=== PATIENT | female | born 1980 | race Caucasian/White ===

== ENCOUNTER → 2016-10-20 | Outpatient (CLI) | payer BC ==
[2016-10-20 17:26] LABS: Glucose 85 mg/dL (74-99); Non-African American GFR(MDRD) >60 (>60 ml/min/1.73 sqM)
[2016-10-20 17:27] LABS: CH 32.5; CHCM 35.4; HCT 34.5 % (34.0-46.0); HDW 2.61; HGB 11.8 gm/dL (11.4-16.0); MCH 31.5 pg (25.0-35.0); MCHC 34.2 g/dL (31.0-37.0); MCV 92.1 fL (80.0-100.0); Mean Platelet Volume 7.3; RBC 3.74 m/uL (3.80-5.40); RDW 12.6 % (11.5-15.5); WBC 7.1 k/uL (3.8-10.6)
[2016-10-20 17:57] LABS: Hepatitis B Surface Ag Index 0.06
--- NOTE | 2016-10-20 21:24 | US ---
EXAMINATION TYPE: US OB <= 14 wk fetus DATE OF EXAM: 10/20/2016 4:33 PM COMPARISON: NONE CLINICAL HISTORY: Z36 Confirm Dates. HX of uterine fibroids; EXAM PERFORMED: Transabdominal (TA) EXAM MEASUREMENTS: GESTATIONAL AGE / DATING Physician Established: not established Dates by LMP: ( 8 weeks/4 days) EDC: 05/28/2017 Dates by First Scan: today Dates by Current Scan for: ( 8 weeks/5 days) EDC: 05/27/2017 MATERNAL ANATOMY Uterus: 10.1 x 8.5 x 7.1; hyperechoic focus ( fibroid) in upper right myometrium = 0.9 x 1.0 x 0.6cm Right Ovary: 2.3 x 1.7 x 1.8cm Left Ovary: 3.3 x 3.3 x 3.4cm Post CDS / Adnexa: wnl Presence of free fluid: no Presence of corpus luteal cyst: in left ovary = 2.1 x 2.3 x 2.4cm Presence of subchorionic bleed: inferior to gestational sac is anechoic area = 0.4 x 0.8 x 1.3cm. GESTATION / SURVEY CRL: 2.1cm (8 weeks/5 days) Yolk Sac (normal less than 6mm): 4.3mm Heart Rate: 173 bpm Rhythm: Normal IUP: Viable IUP Date of LMP: 08/21/2016 Beta HcG (if available): NA TECHNOLOGIST IMPRESSION: Single, live, IUP, 8 weeks/5 days, EDC: 05/27/2017, HR 173bpm; presence o f subchorionic bleed noted inferior to gestational sac; uterine fibroid in upper right myometrium. Single live intrauterine gestation is seen as gestational sac, yolk sac, and pole are identifie d. heart tones are regular and measure 173 bpm which is upper limits of normal. Note is made of small curvilinear fluid collection inferior to gestational sac felt to reflect small subchorionic he morrhage. A 1 cm hyperechoic focus in uterine myometrium may reflect calcified fibroid or dystrophic calcification. No free fluid is seen in pelvic cul-de-sac. Both ovaries are seen. Within left ovary there is 2.4 cm round anechoic lesion felt to reflect corpus luteal cyst. No suspicious extraovarian adnexal masses are identified. IMPRESSION: Single live intrauterine gestation is confirmed, mean crown-rump length is 2.1 cm corresponding to 8 weeks 5 day old fetus.
[2016-10-21 07:56] LABS: HIV-1/HIV-2 Ab Screen NONREAC (NON REAC)
== END | disposition home or self-care (01) ==
LOC: RADUSWWP 15:57
PROVIDERS: ATTEND Obstetrics & Gynecology
DX: Z36 Encounter for antenatal screening of mother (principal); O26.811 Pregnancy related exhaustion and fatigue, first trimester; Z3A.08 8 weeks gestation of pregnancy
CPT/HCPCS: 36415; 76801; 82565; 82947; 85027; 86762; 86780; 86850; 86900; 86901; 87340; 87389

== ENCOUNTER → 2017-02-19 | Outpatient (CLI) | payer BC ==
[2017-02-19 09:14] LABS: CH 33.8; CHCM 34.5; HCT 34.9 % (34.0-46.0); HDW 2.78; HGB 11.5 gm/dL (11.4-16.0); MCH 32.6 pg (25.0-35.0); MCHC 33.1 g/dL (31.0-37.0); MCV 98.5 fL (80.0-100.0); Mean Platelet Volume 7.7; RBC 3.54 m/uL (3.80-5.40); WBC 9.5 k/uL (3.8-10.6)
== END | disposition home or self-care (01) ==
LOC: LABWHC1 07:42
PROVIDERS: ATTEND Obstetrics & Gynecology
DX: Z34.82 Encounter for supervision of other normal pregnancy, second trimester (principal)
CPT/HCPCS: 36415; 82950; 85027

== ENCOUNTER 2017-02-23 08:48 | Outpatient (CLI) | payer BC ==
[2017-02-23 09:57] VITALS: BP 124/88; PULSE 76; RESP 18; TEMP 96.1
[2017-02-23 10:12] LABS: Appearance,Urine Clear (Clear); Bacteria,Urine Occasional /hpf; Bilirubin,Urine Negative (Negative); Glucose,Urine (UA) Negative (Negative); Ketones,Urine Negative (Negative); Leukocyte Esterase,Urine Trace (Negative); Mucus,Urine Rare /hpf; Nitrite,Urine Negative (Negative); PH, Urine 5.5 (5.0-8.0); Particle Count 1652; Protein,Urine Negative (Negative); Specific Gravity,Urine 1.004 (1.001-1.035); Squamous Epithelial Cell,Urine 4 /hpf (0-4); UA Billing (MACRO vs. MICRO) MICRO; Urobilinogen,Urine <2.0 mg/dL (<2.0); WBC,Urine 1 /hpf (0-5)
== END 2017-02-23 10:50 | disposition home or self-care (01) ==
LOC: FBPOP 08:48
PROVIDERS: ATTEND Obstetrics & Gynecology
DX: O47.02 False labor before 37 completed weeks of gestation, second trimester (principal); Z3A.26 26 weeks gestation of pregnancy
CPT/HCPCS: 81001; 82731; 99213

== ENCOUNTER 2017-04-16 13:56 | Outpatient (CLI) | payer BC ==
[2017-04-16 14:54] VITALS: BP 116/56; PULSE 73; RESP 14; TEMP 97.5
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
== END 2017-04-16 15:10 | disposition home or self-care (01) ==
LOC: FBPOP 13:56
PROVIDERS: ATTEND Obstetrics & Gynecology
DX: O26.93 Pregnancy related conditions, unspecified, third trimester (principal); Z3A.34 34 weeks gestation of pregnancy
CPT/HCPCS: 59025; 99213

== ENCOUNTER 2017-05-19 18:49 | Inpatient (IN) | payer BC ==
[~2017-05-19 18:49] MED LIST: BUPIVACAINE (PF) 0.25% 30 ML VIAL ONE; SODIUM CHLORIDE 0.9% 100 ML BAG ONE; fentaNYL (PF) 50 MCG/ML 5 ML AMP ONE
[2017-05-19] MEDS ORDERED: OXYTOCIN 20 UNITS/1000 ML NS 1,000 ML IV SCH (19:13)
[2017-05-19] MEDS ORDERED: AMPICILLIN 2,000 MG in SODIUM CHLORIDE 0.9% 100 ML IVPB STA (19:28)
[2017-05-19] MEDS ORDERED: TERBUTALINE 1 MG/ML VIAL SQ PRN (19:28)
[2017-05-19] MEDS ORDERED: CARBOPROST TROMETHAMINE 250 MCG/ML 1 ML AMP IM PRN (19:28)
[2017-05-19] MEDS ORDERED: LIDOCAINE 1% (PF) 10 MG/ML (30 ML SDV) SQ PRN (19:28)
[2017-05-19] MEDS ORDERED: OXYTOCIN 10 UNIT/ML 1 ML VIAL IM PRN (19:28)
[2017-05-19] MEDS ORDERED: METHYLERGONOVINE 0.2 MG/ML 1 ML AMP IM PRN (19:28)
[2017-05-19] MEDS: LACTATED RINGERS 1,000 ML IV SCH (19:55)
[2017-05-19 20:23] LABS: Basophils % (A) 0 %; CH 34.2; CHCM 36.4; Eosinophils # (A) 0.1 k/uL (0-0.7); Eosinophils % (A) 1 %; HCT 32.4 % (34.0-46.0); HGB 11.7 gm/dL (11.4-16.0); Luc # (Auto) 0.29; Luc % (Auto) 3; Lymphocytes # (A) 1.7 k/uL (1.0-4.8); Lymphocytes % (A) 14 %; MCH 34.2 pg (25.0-35.0); MCHC 36.2 g/dL (31.0-37.0); MCV 94.5 fL (80.0-100.0); Mean Platelet Volume 8.1; Monocytes # (A) 0.6 k/uL (0-1.0); Monocytes % (A) 6 %; Neutrophils % (A) 77 %; RBC 3.42 m/uL (3.80-5.40); RDW 14.3 % (11.5-15.5); WBC 11.6 k/uL (3.8-10.6); WBC (Perox) 11.69
[2017-05-19 20:32] VITALS: BMI 29.4
[2017-05-20] MEDS: LACTATED RINGERS 1,000 ML IV SCH ×2 (00:44→05:33)
[2017-05-20] MEDS: AMPICILLIN 1,000 MG in SODIUM CHLORIDE 0.9% 50 ML IVPB SCH (01:10)
[2017-05-20] MEDS ORDERED: BUPIVACAINE (PF) 0.25% 25 ML, fentaNYL (PF) 200 MCG in SODIUM CHLORIDE 0.9% 71 ML EPIDURAL ONE (06:43)
--- NOTE | 2017-05-20 06:59 | P.HPOB ---
History of Present Illness H&P Date: 05/20/17 Chief Complaint: Leaking fluid. This patient is a pleasant 36-year-old 2 para 1 female estimated date of confinement 05/28/2017 estimated gestational age 38-6/7 weeks gestation who was admitted by Dr. Lorenz last evening with ruptured membranes. Patient states that her water broke and then she had some onset of contractions thereafter. care is complicated by her age which she declined genetic testing. She has had growth ultrasounds and nonstress tests that were normal. A she also has a history of a positive group B strep with her first however was negative this . Review of Systems Constitutional: Denies chills, Denies fever Cardiovascular: Denies chest pain, Denies shortness of breath Respiratory: Denies cough Gastrointestinal: Reports heartburn Genitourinary: Reports Menstruation: Reports amenorrhea Neurological: Denies numbness, Denies weakness Past Medical History Past Medical History: No Reported History Additional Past Medical History / Comment(s): Patient has a history of a uterine fibroid. History of Any Multi-Drug Resistant Organisms: None Reported Additional Past Surgical History / Comment(s): Patient had a cone biopsy in 2009. Past Anesthesia/Blood Transfusion Reactions: No Reported Reaction Past Psychological History: No Psychological Hx Reported Smoking Status: Never smoker Past Alcohol Use History: None Reported Past Drug Use History: None Reported - Past Family History Father History Unknown: Yes Family Medical History: Diabetes Mellitus Medications and Allergies Home Medications Medication Instructions Recorded Confirmed Type Pnv,Calcium 72/Iron/Folic Acid 1 tab PO DAILY 02/23/17 04/16/17 History [ Plus Tablet] Allergies Allergy/AdvReac Type Severity Reaction Status Date / Time No Known Allergies Allergy Verified 05/19/17 19:00 Exam - Vital Signs Vital signs: Vital Signs Temp Pulse Resp BP 05/19/17 19:28 98.1 F 77 18 118/58 05/19/17 19:13 98 F 77 18 136/65 Intake and Output 05/19/17 05/19/17 05/20/17 14:59 22:59 06:59 Intake Total 1999 Balance 1999 Intake: IV 2000 Lactated Ringers 1,000 ml 2000 @ 125 mls/hr IV .Q8H SAVITA Rx#:[id number] Other: # Voids 1 1 Weight 73.028 kg Patient Weight 05/20/17 06:59 Weight 73.028 kg - OBG Physical Exam Abdomen: bowel sounds normal, no diffuse tenderness, no bruit present, no guarding noted, no hepatomegaly, no splenomegaly, no mass Vulva: both: normal Cervix: no lesion (Patient is completely dilated and +1 station.), no discharge Uterus: enlarged (Fundal height is consistent with a term .) Results blood work shows she is O positive, rubella immune, RPR nonreactive, HIV nonreactive, hepatitis B negative, Glucola was normal, group B strep was negative, ultrasounds have been normal. Result Diagrams: 05/19/17 19:55 Abnormal Lab Results - Last 24 Hours (Table) 05/19/17 Range/Units 19:55 WBC 11.6 H (3.8-10.6) k/uL RBC 3.42 L (3.80-5.40) m/uL Hct 32.4 L (34.0-46.0) % Plt Count 136 L (150-450) k/uL Neutrophils # 9.0 H (1.3-7.7) k/uL Assessment and Plan (1) Normal labor and delivery Narrative/Plan: This is a pleasant 36-year-old 2 para 1 female 38-6/7 weeks gestation with spontaneous rupture membranes and onset of labor. Patient does have a history in the past of a positive strep and therefore we'll prophylactically placed on antibiotics. Anticipate vaginal delivery. Status: Acute (2) SROM (spontaneous rupture of membranes) Status: Acute (3) Elderly multigravida Status: Acute
[2017-05-20] MEDS ORDERED: LANOLIN CREAM 5 GM TUBE TOPICAL PRN (07:00)
[2017-05-20] MEDS ORDERED: BENZOCAINE/MENTHOL SPRAY 1 GM/SPRAY AEROSOL TOPICAL PRN (07:00)
[2017-05-20] MEDS ORDERED: ZOLPIDEM 5 MG TAB PO PRN (07:00)
[2017-05-20] MEDS ORDERED: BISACODYL 10 MG SUPP RECTAL PRN (07:00)
[2017-05-20] MEDS ORDERED: IBUPROFEN 600 MG TAB PO PRN (07:00)
[2017-05-20] MEDS ORDERED: Acetaminophen-Codeine 300-30mg TAB PO PRN ×2 (07:00)
[2017-05-20] MEDS ORDERED: diphenhydrAMINE 25 MG CAP PO PRN (07:00)
[2017-05-20] MEDS ORDERED: ACETAMINOPHEN TAB 325 MG TAB PO PRN (07:00)
[2017-05-20] MEDS ORDERED: HYDROCORTISONE 2.5% RECTAL CREAM 30 GM TUBE RECTAL PRN (07:00)
[2017-05-20] MEDS ORDERED: WITCH HAZEL 1 EACH MED..PAD TOPICAL PRN (07:00)
[2017-05-20] MEDS ORDERED: diphenhydrAMINE 50 MG/ML 1 ML VIAL IVP PRN (07:00)
[2017-05-20] MEDS ORDERED: SIMETHICONE 80 MG CHEWABLE PO PRN (07:00)
--- NOTE | 2017-05-20 07:03 | P.PROBDLV ---
Vaginal Delivery Note - . Vaginal Delivery Note: Normal vaginal delivery viable female Apgars 9 and 9 delivery time is 0637 hours. Please see dictated H&P for intimate details of this patient's admission. In brief summary this is a pleasant 36-year-old 2 para 1 female 38-6/7 weeks gestation who is admitted to labor and delivery with spontaneous rupture membranes. Patient is given antibiotics due to a history of positive strep in the past and does require augmentation of labor. Patient gets an epidural and she is about 6 cm dilated and quickly goes to complete. Patient pushes the head to the perineum and the posterior perineum is supported. We have controlled delivery of the infant's head over the perineum. Mouth and nares are bulb suctioned and there is a very loose nuchal cord. This is reduced. We then have delivery of the anterior posterior shoulder and rest this 's body. This is a vigorous viable female infant Apgars are 9 and 9 delivery time is 0637 hours. After delivery of the infant the umbilical cord is doubly clamped and cut. It appears to be trivascular. The placenta is then spontaneously delivered intact. Estimated blood loss is 150 mL. There is a second-degree midline laceration that is repaired with 3-0 Vicryl in the usual fashion in good reapproximation is noted. There are no complications. Infant and mother are stable delivery room.
[2017-05-20] MEDS: SENNOSIDES-DOCUSATE SODIUM 1 EACH TAB PO SCH ×2 (11:14→20:07)
[2017-05-20] MEDS ORDERED: DIPH,PERTUS(ACELL)TETVAC-LF 0.5 ML VIAL IM ONE (14:32)
--- NOTE | 2017-05-21 06:02 | P.PNOBGVD ---
Subjective - Subjective Patient reports: Reports appetite normal, Reports voiding normally, Reports pain well controlled, Reports ambulating normally : doing well Objective - Latest Vital Signs Latest vital signs: Vital Signs Temp Pulse Resp BP 05/21/17 00:00 98.4 F 69 16 123/74 05/20/17 16:00 98.4 F 73 16 119/64 05/20/17 12:00 98.5 F 68 16 116/54 05/20/17 08:55 98 F 71 16 121/60 05/20/17 08:25 97.8 F 62 16 118/61 05/20/17 08:00 97.7 F 64 16 112/59 05/20/17 07:54 59 L 18 119/61 05/20/17 07:40 67 16 129/63 05/20/17 07:25 67 16 114/53 05/20/17 07:07 70 16 120/57 05/20/17 06:50 98 F 63 18 117/57 Intake and Output 05/20/17 05/20/17 05/21/17 14:59 22:59 06:59 Intake Total 100 300 Balance 100 300 Intake: Oral 100 300 Other: # Voids 1 2 - Exam Lungs: bilateral: normal Chest: Normal S1, Normal S2 Extremities: Present: normal Abdomen: Present: normal appearance, soft Uterus: Present: normal, firm Assessment and Plan (1) Normal labor and delivery Narrative/Plan: day 1. Patient is resting without complaints. Vital signs are stable and she is febrile. Uterus is firm nontender she's having normal lochia. My impression this is a normal course. Plan is to continue routine care discharge home tomorrow. Current Visit: Yes Status: Acute Code(s): O80 - ENCOUNTER FOR FULL-TERM UNCOMPLICATED DELIVERY SNOMED Code(s): 79547792 (2) SROM (spontaneous rupture of membranes) Current Visit: Yes Status: Acute Code(s): KOV7801 - SNOMED Code(s): 844310952 (3) Elderly multigravida Current Visit: Yes Status: Acute Code(s): O09.529 - SUPERVISION OF ELDERLY MULTIGRAVIDA, UNSPECIFIED TRIMESTER SNOMED Code(s): 640660574
[2017-05-21] MEDS: AMPICILLIN 1,000 MG in SODIUM CHLORIDE 0.9% 50 ML IVPB SCH (08:19)
[2017-05-21] MEDS: SENNOSIDES-DOCUSATE SODIUM 1 EACH TAB PO SCH ×2 (10:39→19:52)
--- NOTE | 2017-05-22 05:49 | P.PNOBGVD ---
Subjective - Subjective Patient reports: Reports appetite normal, Reports voiding normally, Reports pain well controlled, Reports ambulating normally : doing well Objective - Latest Vital Signs Latest vital signs: Vital Signs Temp Pulse Resp BP Pulse Ox 05/22/17 00:00 98.1 F 65 18 121/70 99 05/21/17 19:50 98.7 F 65 17 132/77 97 05/21/17 16:00 98.7 F 73 16 122/71 05/21/17 07:55 97.4 F L 71 16 116/64 - Exam Lungs: bilateral: normal Chest: Normal S1, Normal S2 Extremities: Present: normal Abdomen: Present: normal appearance, soft Uterus: Present: normal, firm Assessment and Plan (1) Normal labor and delivery Narrative/Plan: Post day #2. Patient is resting without complaints. Vital signs are stable she is afebrile. Uterus is firm nontender she's having normal lochia. Impression is a normal course. Plan is to continue routine care discharge home later today. Current Visit: Yes Status: Acute Code(s): O80 - ENCOUNTER FOR FULL-TERM UNCOMPLICATED DELIVERY SNOMED Code(s): 88365094 (2) SROM (spontaneous rupture of membranes) Current Visit: Yes Status: Acute Code(s): FYM9304 - SNOMED Code(s): 578117934 (3) Elderly multigravida Current Visit: Yes Status: Acute Code(s): O09.529 - SUPERVISION OF ELDERLY MULTIGRAVIDA, UNSPECIFIED TRIMESTER SNOMED Code(s): 607250375
--- NOTE | 2017-05-22 05:51 | P.DS ---
Providers Date of admission: 05/19/17 19:12 Expected date of discharge: 05/22/17 Attending physician: Nicolás Gan Primary care physician: Stated None - Discharge Diagnosis(es) (1) Normal labor and delivery Current Visit: Yes Status: Acute (2) SROM (spontaneous rupture of membranes) Current Visit: Yes Status: Acute (3) Elderly multigravida Current Visit: Yes Status: Acute Hospital Course: Please see dictated H&P for intimate details of this patient's admission. Brief summary is a pleasant 36-year-old 2 para 1 female 38-5/7 weeks gestation admitted to labor and delivery with spontaneous rupture membranes in active labor. Patient was on have a vaginal delivery viable female . Please see dictated delivery note. day #2 patient's felt be stable for discharge home follow up with me in 6 weeks. Procedures: Normal vaginal delivery. Patient Condition at Discharge: Good Plan - Discharge Summary New Discharge Prescriptions: New Acetaminophen-Codeine 300-30mg [Tylenol w/codeine #3] 1 - 2 each PO Q4HR PRN #30 tab PRN Reason: Mild Pain exceeding Tylenol Ibuprofen [Motrin] 600 mg PO Q6HR PRN #40 tab PRN Reason: Mild Pain Or Fever >= 100.5 No Action Pnv,Calcium 72/Iron/Folic Acid [ Plus Tablet] 1 tab PO DAILY Discharge Medication List Pnv,Calcium 72/Iron/Folic Acid [ Plus Tablet] 1 tab PO DAILY 02/23/17 [ History] Acetaminophen-Codeine 300-30mg [Tylenol w/codeine #3] 1 - 2 each PO Q4HR PRN # 30 tab 05/21/17 [Rx] Ibuprofen [Motrin] 600 mg PO Q6HR PRN #40 tab 05/21/17 [Rx] Follow up Appointment(s)/Referral(s): Nicolás Gan MD [STAFF PHYSICIAN] - 06/30/17 9:45 am Patient Instructions/Handouts: Vaginal Delivery (DC) Activity/Diet/Wound Care/Special Instructions: No intercourse or anything per vagina for 6 weeks. Please call if any fever, chills, excessive vaginal bleeding, and/or abdominal pain. Discharge Disposition: HOME SELF-CARE
[2017-05-22 08:57] VITALS: BP 130/68; PULSE 91; RESP 15; TEMP 98
[2017-05-22] MEDS: SENNOSIDES-DOCUSATE SODIUM 1 EACH TAB PO SCH (11:02)
== END 2017-05-22 10:50 | disposition home or self-care (01) | DRG 775 ==
LOC: FBPOP 18:49 → 4FBP 19:12
PROVIDERS: ADMIT Obstetrics & Gynecology; ATTEND Obstetrics & Gynecology
PROC: 3E0S3NZ Introduction of Analgesics, Hypnotics, Sedatives into Epidural Space, Percutaneous Approach (ICD-10-PCS; 2017-05-19)
PROC: 10E0XZZ Delivery of Products of Conception, External Approach (ICD-10-PCS; principal; 2017-05-20)
PROC: 0KQM0ZZ Repair Perineum Muscle, Open Approach (ICD-10-PCS; 2017-05-20)
PROC: 3E0234Z Introduction of Serum, Toxoid and Vaccine into Muscle, Percutaneous Approach (ICD-10-PCS; 2017-05-20)
DX: O70.1 Second degree perineal laceration during delivery (principal); Z37.0 Single live birth; O69.81X0 Labor and delivery complicated by cord around neck, without compression, not applicable or unspecified; Z83.3 Family history of diabetes mellitus; Z3A.38 38 weeks gestation of pregnancy; Z23 Encounter for immunization; Z86.19 Personal history of other infectious and parasitic diseases; Z87.42 Personal history of other diseases of the female genital tract; Z87.19 Personal history of other diseases of the digestive system
CPT/HCPCS: 59025; 84112; 85025; 88307; 90471; 90715; 99213

== ENCOUNTER → 2017-12-03 | Outpatient (CLI) | payer BC ==
--- NOTE | 2017-12-03 07:31 | US ---
EXAMINATION TYPE: US abdomen limited DATE OF EXAM: 12/03/2017 COMPARISON: NONE CLINICAL HISTORY: R10.11 right upper quandrant pain. Pt states ABD pain, recently post prandial EXAM MEASUREMENTS: Liver Length: 16.1 cm Gallbladder Wall: 0.6 cm CBD: 0.5 cm Right Kidney: 11.3 x 4.0 x 4.8 cm Pancreas: wnl Liver: wnl Gallbladder: Multiple gallstones with one in neck, thickened wall Evidence for sonographic Yin's sign: No CBD: wnl Right Kidney: wnl IMPRESSION: 1. Cholelithiasis with a gallstone identified within the gallbladder neck. Gallbladder wall is thicke joseph. No pericholecystic fluid. Correlate clinically for cholecystitis. A Yellow level critical message alert has been initiated for Harvinder Casillas MD via the [employer] Critical Results System on 12/03/2017 7:29 AM. This message alert has been sent to Harvinder Casillas MD via the preferences provided by the clinician for the receipt of Radiology Critical Findings. Message ID [id number].
== END | disposition home or self-care (01) ==
LOC: RADUSWWP 06:51
PROVIDERS: ATTEND Internal Medicine
DX: K80.20 Calculus of gallbladder without cholecystitis without obstruction (principal)
CPT/HCPCS: 76705

== ENCOUNTER 2017-12-07 07:39 | Day surgery (SDC) | payer BC ==
[2017-12-06 13:22] VITALS: BMI 21.4
[~2017-12-07 07:39] MED LIST changes: -BUPIVACAINE (PF) 0.25% 30 ML VIAL ONE; +DEXAMETHASONE SOD PHOSPHATE 10 MG/ML 1 ML VIAL IV ONE; +MIDAZOLAM 2 MG/2 ML VIAL IV PRN; +ONDANSETRON 4 MG/2 ML VIAL IVP ONE; +SCOPOLAMINE 1.5MG/72HR PATCH TRANSDERM ONE; -SODIUM CHLORIDE 0.9% 100 ML BAG ONE; +ceFAZolin IN SWFI 2 GM/20 ML SYRINGE IVP ONE; -fentaNYL (PF) 50 MCG/ML 5 ML AMP ONE
[2017-12-07] MEDS ORDERED: LIDOCAINE 1% 20 ML VIAL (10MG/ML) FOR IV START INTRADERMA ONE (09:00)
[2017-12-07] MEDS: LACTATED RINGERS 1,000 ML IV SCH ×2 (09:01→13:56)
[2017-12-07] MEDS ORDERED: HEPARIN SODIUM,PORCINE 5,000 UNIT/ML 1 ML VIAL SQ ONE (09:13)
[2017-12-07] MEDS ORDERED: PROPOFOL 10 MG/ML 20 ML VIAL IV ONE (09:41)
[2017-12-07] MEDS ORDERED: MIDAZOLAM 2 MG/2 ML VIAL ONE (09:41)
[2017-12-07] MEDS ORDERED: SUCCINYLCHOLINE CHLORIDE 100 MG/5 ML SYR IV ONE (09:41)
[2017-12-07] MEDS ORDERED: LIDOCAINE 1% INJ 10MG/ML (20 ML MDV) ONE (09:41)
[2017-12-07] MEDS ORDERED: GLYCOPYRROLATE 0.2 MG/ML 2 ML VIAL ONE (09:41)
[2017-12-07] MEDS ORDERED: NEOSTIGMINE 1 MG/ML 10 ML VIAL ONE (09:41)
[2017-12-07] MEDS ORDERED: ROCURONIUM BROMIDE 10 MG/ML 10 ML VIAL IV ONE (09:41)
[2017-12-07] MEDS ORDERED: fentaNYL (PF) 50 MCG/ML 2 ML AMP ONE (09:41)
[2017-12-07] MEDS ORDERED: BUPIVACAINE (PF) 0.25% 30 ML VIAL SQ ONE ×2 (10:03)
[2017-12-07] MEDS ORDERED: LIDOCAINE 1%-EPI 1:100,000 20 ML VIAL SQ ONE ×2 (10:03)
[2017-12-07] MEDS ORDERED: LACTATED RINGERS 1,000 ML IV ONE (10:26)
[2017-12-07 11:08] VITALS: TEMP 97.4
[2017-12-07] MEDS: fentaNYL (PF) 50 MCG/ML 2 ML AMP IV PRN ×2 (11:20→11:32)
[2017-12-07 11:49] VITALS: RESP 18
--- NOTE | 2017-12-07 12:14 | P.OP ---
Date of Procedure: 12/07/17 Preoperative Diagnosis: Acute on chronic cholecystitis Postoperative Diagnosis: Same Procedure(s) Performed: Laparoscopic cholecystectomy Anesthesia: GETA Condition: stable Disposition: PACU Indications for Procedure: This 37-year-old female who began experiencing right upper quadrant pain and tenderness 1 week ago. She had ultrasound findings consistent with acute on chronic cholecystitis. This pain progressively got worse. I described to her the risks benefits and alternatives to laparoscopic cholecystectomy. These include risks of bleeding infection damage surrounding tissue need for further operation and damage to common bile duct. She stated she understood agreed and consented Description of Procedure: Patient was brought into the operative suite remain in the supine position underwent general endotracheal anesthesia per Department of anesthesia she was prepped and draped in the usual sterile fashion timeout was performed correct patient correct procedure correct site was verified. A 2 cm incision was made within the umbilicus carried down to the fashion under direct visualization the fascia was incised and the abdomen was entered directly. A 12 mm port was placed under direct visualization the abdomen was insufflated. 3 5 mm ports were placed in the right upper quadrant. The gallbladder is identified grasped at the fundus and retracted. The cystic duct and cystic artery were skeletonized the critical view was obtained they were then duly clipped and ligated. The gallbladder is removed from the liver bed using Bovie left cautery. The gallbladder was placed in Endo Catch bag and removed through the infraumbilical port site. Hemostasis was noted. The infraumbilical port site was closed with 0 Vicryl in a [id number] fashion with 8 of a Sai- Saniya suture passer. 4-0 Vicryl subcuticular sutures were used to close the skin followed by skin glue patient tolerated procedure well no apparent complications Plan - Discharge Summary New Discharge Prescriptions: New Docusate [Colace] 100 mg PO BID #14 capsule HYDROcodone/APAP 5-325MG [Eugene 5-325] 1 tab PO Q4HR PRN #30 tab PRN Reason: Pain No Action Multivitamin [Multivitamins Adult Gummies] 1 each PO HS Discharge Medication List Multivitamin [Multivitamins Adult Gummies] 1 each PO HS 12/06/17 [History] Docusate [Colace] 100 mg PO BID #14 capsule 12/07/17 [Rx] HYDROcodone/APAP 5-325MG [Eugene 5-325] 1 tab PO Q4HR PRN #30 tab 12/07/17 [Rx] Follow up Appointment(s)/Referral(s): Chilango Baumann DO [Doctor of Osteopathic Medicine] - 12/22/17 9:30 am (1 to 2 weeks) Patient Instructions/Handouts: *[facility] - Laparoscopic Cholecystectomy Discharge Instructions, *[facility] - (Anesthesia) Discharge Instructions Outpatient Surgery Activity/Diet/Wound Care/Special Instructions: As tolerated, do not lift over 15lbs for 3-4 weeks. May shower tomorrow and pat dry. Do not submerge in water Discharge Disposition: HOME SELF-CARE
[2017-12-07] MEDS ORDERED: HYDROcodone/APAP 5-325MG 1 EACH TAB PO ONE ×2 (12:32→13:13)
[2017-12-07 14:18] VITALS: BP 115/68; PULSE 65
== END 2017-12-07 15:15 | disposition home or self-care (01) ==
LOC: OR 07:39
PROVIDERS: ATTEND Student in an Organized Health Care Education/Training Program
DX: K80.12 Calculus of gallbladder with acute and chronic cholecystitis without obstruction (principal)
CPT/HCPCS: 81025; 88304; 47562; J2250; J1644; J1100; J2710; J2405; J2001; J3010; J0330; J2704; J0690

== ENCOUNTER → 2017-12-31 | Outpatient (CLI) | payer BC ==
--- NOTE | 2017-12-31 11:17 | MM ---
Reason for exam: screening (asymptomatic). Baseline mammogram. History: Patient had first child at age 31. Physical Findings: Nurse did not find any significant physical abnormalities on exam. MG 3D Screening Mammo W/Cad Bilateral CC and MLO view(s) were taken. The breast tissue is heterogeneously dense. This may lower the sensitivity of mammography. Finding: There are typically benign round, diffuse/scattered and grouped calcifications in both breasts, greater in the left breast. There is no discrete abnormality. These results were verbally communicated with the patient and result sheet given to the patient on 12/31/17. ASSESSMENT: Benign, BI-RAD 2 RECOMMENDATION: Routine screening mammogram of both breasts at age 40.
== END | disposition home or self-care (01) ==
LOC: RADMAMWWP 09:31
PROVIDERS: ATTEND Obstetrics & Gynecology
DX: Z12.31 Encounter for screening mammogram for malignant neoplasm of breast (principal)
CPT/HCPCS: 77063; 77067

== ENCOUNTER 2019-10-17 09:13 | Day surgery (SDC) | payer BC ==
[~2019-10-17 09:13] MED LIST changes: -DEXAMETHASONE SOD PHOSPHATE 10 MG/ML 1 ML VIAL IV ONE; +LACTATED RINGERS 1,000 ML IV SCH; +LIDOCAINE 1% 20 ML VIAL (10MG/ML) FOR IV START INTRADERMA PRN; -MIDAZOLAM 2 MG/2 ML VIAL IV PRN; -ONDANSETRON 4 MG/2 ML VIAL IVP ONE; -SCOPOLAMINE 1.5MG/72HR PATCH TRANSDERM ONE; -ceFAZolin IN SWFI 2 GM/20 ML SYRINGE IVP ONE
[2019-10-17 09:30] VITALS: TEMP 97.2
[2019-10-17] MEDS ORDERED: LIDOCAINE 1% INJ 10MG/ML (20 ML MDV) ONE (10:39)
[2019-10-17] MEDS ORDERED: PROPOFOL 10 MG/ML 20 ML VIAL IV ONE (10:39)
--- NOTE | 2019-10-17 11:18 | P.PCN ---
Date of Procedure: 10/17/19 Description of Procedure: BRIEF HISTORY: Patient is a 39-year-old female who presents for outpatient colonoscopy for evaluation of diarrhea. She reports intermittent episodes of loose stool. Previously the patient underwent colonoscopy 20 years ago which she believes was normal. No family history of colon cancer reported. PROCEDURE PERFORMED: Colonoscopy with polypectomy and biopsy. PREOPERATIVE DIAGNOSIS: Diarrhea, last colonoscopy 20 years ago. ESTIMATED BLOOD LOSS: Minimal. IV sedation per Anesthesia. PROCEDURE: After informed consent was obtained, the patient, was brought into the endoscopy unit. IV sedation was administered by Anesthesia under continuous monitoring. Digital rectal examination was normal. Initially the Olympus CF-190 flexible video colonoscope was then inserted in the rectum, gradually advanced into the cecum without any difficulty. Careful examination was performed as the scope was gradually being withdrawn. Ileocecal valve and the appendiceal orifice were visualized and appeared normal. Prep was excellent. Mucosa of the cecum, as cending colon, transverse colon, descending colon, sigmoid colon, and rectum appeared normal, with random biopsies taken of the right and left colon in the setting of diarrhea. Flat 5 mm ascending colon polyp removed with cold snare polypectomy . Retroflexion was performed in the rectum and no lesions were seen, with low-grade internal hemorrhoids and skin tags noted. The patient tolerated the procedure well. IMPRESSION: Normal-appearing colon from rectum to cecum, with random biopsies taken of the right and left colon in the setting of altered bowel function and diarrhea. Small ascending colon polyp removed with cold snare polypectomy. RECOMMENDATIONS: Findings of this examination were discussed with the patient and her . Okay to resume diet. Okay to resume medications. Await pathology from biopsies and polypectomy. Would recommend repeat colonoscopy in 5 years if polypectomy is consistent with tubular adenoma or tubulovillous adenoma otherwise patient can undergo screening at 50.
[2019-10-17 11:32] VITALS: BP 104/54; PULSE 63; RESP 16
== END 2019-10-17 11:47 | disposition home or self-care (01) ==
LOC: ORWHC2ENDO 09:13
PROVIDERS: ATTEND Internal Medicine
DX: D12.2 Benign neoplasm of ascending colon (principal); K64.8 Other hemorrhoids; K64.4 Residual hemorrhoidal skin tags; Z79.1 Long term (current) use of non-steroidal anti-inflammatories (NSAID); Z98.890 Other specified postprocedural states; Z90.49 Acquired absence of other specified parts of digestive tract
CPT/HCPCS: 81025; 88305; 45385; J2001; J2704

== ENCOUNTER → 2021-10-28 | Outpatient (CLI) | payer BC ==
--- NOTE | 2021-10-30 10:58 | MM ---
Reason for exam: screening (asymptomatic). Last mammogram was performed 3 years and 10 months ago. History: Patient had first child at age 31. Physical Findings: A clinical breast exam by your physician is recommended on an annual basis and results should be correlated with mammographic findings. MG 3D Screening Mammo W/Cad Bilateral CC and MLO view(s) were taken. Prior study comparison: December 31, 2017, bilateral MG 3d screening mammo w/cad. The breast tissue is extremely dense which could obscure a lesion on mammography. No significant changes when compared with prior studies. ASSESSMENT: Benign, BI-RAD 2 RECOMMENDATION: Routine screening mammogram of both breasts in 1 year.
== END | disposition home or self-care (01) ==
LOC: RADMAMWWP 12:47
PROVIDERS: ATTEND Obstetrics & Gynecology
DX: Z12.31 Encounter for screening mammogram for malignant neoplasm of breast (principal)
CPT/HCPCS: 77063; 77067

== ENCOUNTER → 2023-11-15 | Outpatient (CLI) | payer BC ==
--- NOTE | 2023-11-16 15:06 | MM ---
Reason for Exam: Screening (asymptomatic). Last screening mammogram was performed 12 month(s) ago. Patient History: Menarche at age 12. First Full-Term at age 31. Late child-bearing (after 30). Premenopausal. Patient has history of breast feeding. Last menstrual period: 10/31/2023 Risk Values: Alejandrina 5 year model risk: 1.0%. NCI Lifetime model risk: 13.2%. Prior Study Comparison: 12/31/2017 Bilateral Screening Mammogram, [facility]. 10/28/2021 Bilateral Screening Mammogram, [facility]. 11/11/2022 Bilateral MG 3D screening mammo w/cad, [facility]. Tissue Density: The breasts are extremely dense, which lowers the sensitivity of mammography. Findings: Analyzed By CAD. There is no suspicious group of microcalcifications or new suspicious mass. Overall Assessment: Negative, BI-RAD 1 Management: Screening Mammogram of both breasts in [address] [facility] will attempt to contact patient to return for supplemental views and ultrasound if indicated. Patient should continue monthly self-breast exams. A clinical breast exam by your physician is recommended on an annual basis. This exam should not preclude additional follow-up of suspicious palpable abnormalities. Note on Alejandrina scores and lifetime risk: 1. A Alejandrina score greater than 3% is considered moderate risk. If this is the case, consider specialist referral to assess eligibility for a risk reducing agent. 2. If overall lifetime risk for the development of breast cancer is 20% or higher, the patient may qualify for future screening with alternating mammogram and breast MRI. Electronically signed and approved by: Jesus Hitchcock DO
== END | disposition home or self-care (01) ==
LOC: RADMAMWWP 09:15
PROVIDERS: ATTEND Obstetrics & Gynecology
DX: Z12.31 Encounter for screening mammogram for malignant neoplasm of breast (principal)
CPT/HCPCS: 77063; 77067

== ENCOUNTER 2023-11-27 17:46 | Emergency (ER) | payer BC ==
[2023-11-27] MEDS: SODIUM CHLORIDE 0.9% 1,000 ML IV STA (18:24)
[2023-11-27 18:54] VITALS: PULSE 61; RESP 16; TEMP 98.2
[2023-11-27 19:08] LABS: Appearance,Urine Cloudy (Clear); Bilirubin,Urine Negative (Negative); Blood,Urine Moderate (Negative); Color,Urine Yellow; Glucose,Urine (UA) Negative (Negative); Ketones,Urine Negative (Negative); Leukocyte Esterase,Urine Large (Negative); Mucus,Urine Few /hpf; Nitrite,Urine Negative (Negative); PH, Urine 5.5 (5.0-8.0); Protein,Urine 1+ (Negative); RBC,Urine >182 /hpf (0-5); Specific Gravity,Urine 1.023 (1.001-1.035); Squamous Epithelial Cell,Urine 14 /hpf (0-4); Urobilinogen,Urine <2.0 mg/dL (<2.0); WBC,Urine 13 /hpf (0-5)
[2023-11-27 19:15] LABS: Basophils % (A) 0 %; Eosinophils % (A) 1 %; HCT 36.3 % (34.0-46.0); HGB 12.6 gm/dL (11.4-16.0); Lymphocytes # (A) 1.4 k/uL (1.0-4.8); Lymphocytes % (A) 24 %; MCH 32.9 pg (25.0-35.0); MCHC 34.8 g/dL (31.0-37.0); MCV 94.5 fL (80.0-100.0); Mean Platelet Volume 8.1; Monocytes # (A) 0.2 k/uL (0-1.0); Monocytes % (A) 4 %; Neutrophils % (A) 69 %; Platelet Count 183 k/uL (150-450); RBC 3.84 m/uL (3.80-5.40); RDW 12.2 % (11.5-15.5); WBC 5.8 k/uL (3.8-10.6)
[2023-11-27 19:28] LABS: Partial Thromboplastin Time 24.6 sec (22.0-30.0); Prothrombin Time 10.8 sec (10.0-12.5)
[2023-11-27 19:31] LABS: ALT 18 U/L (4-34); AST 22 U/L (14-36); African American GFR (CKD) >90 (>60 ml/min/1.73 sqM); Albumin 4.3 g/dL (3.5-5.0); Alkaline Phosphatase 82 U/L (38-126); Anion Gap 8 mmol/L; Blood Urea Nitrogen 12 mg/dL (7-17); Calcium 9.2 mg/dL (8.4-10.2); Carbon Dioxide 23 mmol/L (22-30); Chloride 108 mmol/L (98-107); Glucose 102 mg/dL (74-99); Non-African American GFR(CKD) >90 (>60 ml/min/1.73 sqM); Potassium 3.7 mmol/L (3.5-5.1); Sodium 139 mmol/L (137-145); Total Bilirubin 0.4 mg/dL (0.2-1.3); Total Protein 6.6 g/dL (6.3-8.2)
--- NOTE | 2023-11-27 20:28 | ED ---
General Adult HPI - General Chief complaint: Syncope Stated complaint: Sycope Time Seen by Provider: 11/27/23 17:55 Source: patient, EMS, RN notes reviewed, old records reviewed Mode of arrival: EMS Limitations: no limitations - History of Present Illness Initial comments: Is a 43-year-old female who presents emergency department complaining of a near syncopal episode. States she was standing up microwaving her dinner when she felt lightheaded like she was going to pass out. Had a whole-body heavy sensation. Was able to sit down and symptoms resolved. Did not fully pass out. Did not injure self. Currently has no acute complaints at this time. Presents for further evaluation. Denies chest pain, shortness of breath, abdominal pain, nausea, vomiting. She is currently on her menstrual cycle. Denies being . Denies any urinary complaints. No known fevers or chills. Does have sick contacts, as her children have upper respiratory illnesses. Presents for further evaluation at this time. No significant past medical history. - Related Data Home Medications Medication Instructions Recorded Confirmed Ibuprofen [Motrin Ib] 200 - 400 mg PO Q6H PRN 10/13/19 10/13/19 Allergies Allergy/AdvReac Type Severity Reaction Status Date / Time No Known Allergies Allergy Verified 10/17/19 09:31 Review of Systems ROS Statement: Those systems with pertinent positive or pertinent negative responses have been documented in the HPI. Review of Systems: CONST: Denies fever EYES: Denies blurry vision ENT: Denies nasal congestion C/V: Denies Chest pain RESP: Denies shortness of breath GI: Denies abdominal pain : Denies dysuria SKIN: Denies rash. MSK: Denies joint pain. NEURO: Denies headache ROS Other: All systems not noted in ROS Statement are negative. Past Medical History Past Medical History: No Reported History Additional Past Medical History / Comment(s): CURRENT: DIARRHEA, ABD PAIN. HIstory of a uterine fibroid. History of Any Multi-Drug Resistant Organisms: None Reported Past Surgical History: Cholecystectomy Additional Past Surgical History / Comment(s): Patient had a cone biopsy in 2009., colonoscopy, wisdom teeth. Past Anesthesia/Blood Transfusion Reactions: Motion Sickness Additional Past Anesthesia/Blood Transfusion Reaction / Comment(s): Wakes up crying after surgery. Past Psychological History: No Psychological Hx Reported Past Alcohol Use History: Occasional Past Drug Use History: None Reported - Past Family History Father History Unknown: Yes Family Medical History: Diabetes Mellitus Mother Additional Family Medical History / Comment(s): Mitral Valve Prolapse General Exam - General Exam Comments Initial Comments: General: Appears in no acute distress. HEAD: Normal with no signs of head trauma. EYES: PERRLA, EOMI, conjunctiva normal, no discharge. ENT: Hearing grossly intact, normal oropharynx. RESPIRATORY: Clear breath sounds bilaterally. No wheezes, rales, or rhonchi. C/V: Regular rate and rhythm. S1 and S2 auscultated, no edema, peripheral pulses 2+ and intact throughout ABD: Abd is soft, nontender, nondistended EXT: Normal range of motion, no obvious deformity SKIN: No rashes or lesions observed on exposed skin. NEURO: Alert and oriented x 4. Cranial nerves II-XII intact. No focal sensory or strength deficits. GCS of 15. NIH is 0. Limitations: no limitations Course Vital Signs 11/27/23 11/27/23 17:48 20:25 Temperature 98.2 F Pulse Rate 61 Respiratory 16 16 Rate Blood Pressure 148/78 Blood Pressure 128/72 [Right Arm Sitting] Blood Pressure 127/79 [Right Arm Standing] Blood Pressure 123/62 [Right Arm Supine] O2 Sat by Pulse 98 98 Oximetry Medical Decision Making - Medical Decision Making Was pt. sent in by a medical professional or institution ([facility], ADDICTION SOCIAL WORKER, urgent care, hospital, or [facility]...) When possible be specific @ -No Did you speak to anyone other than the patient for history (EMS, parent, family, police, friend...)? What history was obtained from this source @ -No Did you review nursing and triage notes (agree or disagree)? Why? @ -I reviewed and agree with nursing and triage notes Were old charts reviewed (outside hosp., previous admission, EMS record, old EKG, old radiological studies, urgent care reports/EKG's, [facility] records)? Report findings @ -No old charts were reviewed Differential Diagnosis (chest pain, altered mental status, abdominal pain women, abdominal pain men, vaginal bleeding, weakness, fever, dyspnea, syncope, headache, dizziness, GI bleed, back pain, seizure, CVA, palpatations, mental health, musculoskeletal)? @ -Differential Syncope: Valvular disease, hypertrophic cardiomyopathy, pulmonary embolism, tamponade, tachycardia, bradycardia, MN, hypovolemia, hemorrhage, dissection, anemia, intracranial hemorrhage, seizure, hypoglycemia, carbon monoxide poisoning, this is not meant to be an all-inclusive list. EKG interpreted by me (3pts min.). @ -As above X-rays interpreted by me (1pt min.). @ -None done CT interpreted by me (1pt min.). @ -None done U/S interpreted by me (1pt. min.). @ -None done What testing was considered but not performed or refused? (CT, X-rays, U/S, labs)? Why? @ -Considered CT brain however after discussion with the patient she is as ymptomatic we both agreed to defer at this time. No indications. What meds were considered but not given or refused? Why? @ -None Did you discuss the management of the patient with other professionals (professionals i.e. , PA, ADDICTION SOCIAL WORKER, lab, RT, psych nurse, director social service, taker out, teacher, transport corps officer, case specialist)? Give summary @ -No Was smoking cessation discussed for >3mins.? @ -No Was critical care preformed (if so, how long)? @ -No Were there social determinants of health that impacted care today? How? (Homelessness, low income, unemployed, alcoholism, drug addiction, transportation, low edu. Level, literacy, decrease access to med. care, prison, rehab)? @ -No Was there de-escalation of care discussed even if they declined (Discuss DNR or withdrawal of care, Hospice)? DNR status @ -No What co-morbidities impacted this encounter? (DM, HTN, Smoking, COPD, CAD, Cancer, CVA, ARF, Chemo, Hep., AIDS, mental health diagnosis, sleep apnea, morbid obesity)? @ -None Was patient admitted / discharged? Hospital course, mention meds given and route, prescriptions, significant lab abnormalities, going to OR and other pertinent info. @ -Based on the patient's presentation and physical exam, patient presents for near syncope episode at home. Vital signs are within acceptable limits. Currently has no symptoms. We will obtain general workup. She was in agreement this plan. She will be given IV fluids as well. EKG shows no signs of acute ischemia. Patient's laboratory studies are all within acceptable limits. There is some blood in her urine however patient is currently on her menstrual cycle. She is not . Viral swabs negative. On reevaluation, patient erin asymptomatic. Orthostatic vital signs are within normal limits. I discussed with the patient her results. We both agreed not to obtain any further workup or imaging at this time as she is asymptomatic. Diagnosis is near syncope. Recommended follow-up with her PCP next week. She was in agreement this plan. I instructed the patient to follow up with their PCP in the next 1-3 days. I explained that the patient should return to the emergency department if they experience any worsening symptoms. Strict return precautions were discussed with the patient. The patient expressed understanding of these instructions. I answered all questions that the patient had. The patient was discharged home in good condition with their prescriptions and follow up information. Undiagnosed new problem with uncertain prognosis? @ -No Drug Therapy requiring intensive monitoring for toxicity (Heparin, Nitro, Insulin, Cardizem)? @ -No Were any procedures done? @ -No Diagnosis/symptom? @ -Near syncope Acute, or Chronic, or Acute on Chronic? @ -Acute Uncomplicated (without systemic symptoms) or Complicated (systemic symptoms)? @ -Uncomplicated Side effects of treatment? @ -No Exacerbation, Progression, or Severe Exacerbation? @ -No Poses a threat to life or bodily function? How? (Chest pain, USA, MN, pneumonia, PE, COPD, DKA, ARF, appy, cholecystitis, CVA, Diverticulitis, Homicidal, Suicidal, threat to staff... and all critical care pts) @ -Unlikely - Lab Data Result diagrams: 11/27/23 19:07 11/27/23 19:07 Lab Results 11/27/23 11/27/23 11/27/23 Range/Units 18:05 18:05 18:45 WBC (3.8-10.6) k/uL RBC (3.80-5.40) m/uL Hgb (11.4-16.0) gm/dL Hct (34.0-46.0) % MCV (80.0-100.0) fL MCH (25.0-35.0) pg MCHC (31.0-37.0) g/dL RDW (11.5-15.5) % Plt Count (150-450) k/uL MPV Neutrophils % % Lymphocytes % % Monocytes % % Eosinophils % % Basophils % % Neutrophils # (1.3-7.7) k/uL Lymphocytes # (1.0-4.8) k/uL Monocytes # (0-1.0) k/uL Eosinophils # (0-0.7) k/uL Basophils # (0-0.2) k/uL PT (10.0-12.5) sec INR (<1.2) APTT (22.0-30.0) sec Sodium (137-145) mmol/L Potassium (3.5-5.1) mmol/L Chloride (98-107) mmol/L Carbon Dioxide (22-30) mmol/L Anion Gap mmol/L BUN (7-17) mg/dL Creatinine (0.52-1.04) mg/dL Est GFR (CKD-EPI)AfAm (>60 ml/min/1.73 sqM) Est GFR (CKD-EPI)NonAf (>60 ml/min/1.73 sqM) Glucose (74-99) mg/dL Calcium (8.4-10.2) mg/dL Magnesium (1.6-2.3) mg/dL Total Bilirubin (0.2-1.3) mg/dL AST (14-36) U/L ALT (4-34) U/L Alkaline Phosphatase (38-126) U/L Total Protein (6.3-8.2) g/dL Albumin (3.5-5.0) g/dL Urine Color Yellow Urine Appearance Cloudy H (Clear) Urine pH 5.5 (5.0-8.0) Ur Specific [place] 1.023 (1.001-1.035) Urine Protein 1+ H (Negative) Urine Glucose (UA) Negative (Negative) Urine Ketones Negative (Negative) Urine Blood Moderate H (Negative) Urine Nitrite Negative (Negative) Urine Bilirubin Negative (Negative) Urine Urobilinogen <2.0 (<2.0) mg/dL Ur Leukocyte Esterase Large H (Negative) Urine RBC >182 H (0-5) /hpf Urine WBC 13 H (0-5) /hpf Ur Squamous Epith Cells 14 H (0-4) /hpf Urine Mucus Few H (None) /hpf Urine HCG, Qual Not Detected (Not Detectd) Influenza Type A (PCR) Not Detected (Not Detectd) Influenza Type B (PCR) Not Detected (Not Detectd) RSV (PCR) Not Detected (Not Detectd) SARS-CoV-2 (PCR) Not Detected (Not Detectd) 11/27/23 11/27/23 11/27/23 Range/Units 19:07 19:07 19:07 WBC 5.8 (3.8-10.6) k/uL RBC 3.84 (3.80-5.40) m/uL Hgb 12.6 (11.4-16.0) gm/dL Hct 36.3 (34.0-46.0) % MCV 94.5 (80.0-100.0) fL MCH 32.9 (25.0-35.0) pg MCHC 34.8 (31.0-37.0) g/dL RDW 12.2 (11.5-15.5) % Plt Count 183 (150-450) k/uL MPV 8.1 Neutrophils % 69 % Lymphocytes % 24 % Monocytes % 4 % Eosinophils % 1 % Basophils % 0 % Neutrophils # 4.0 (1.3-7.7) k/uL Lymphocytes # 1.4 (1.0-4.8) k/uL Monocytes # 0.2 (0-1.0) k/uL Eosinophils # 0.0 (0-0.7) k/uL Basophils # 0.0 (0-0.2) k/uL PT 10.8 (10.0-12.5) sec INR 1.0 (<1.2) APTT 24.6 (22.0-30.0) sec Sodium 139 (137-145) mmol/L Potassium 3.7 (3.5-5.1) mmol/L Chloride 108 H (98-107) mmol/L Carbon Dioxide 23 (22-30) mmol/L Anion Gap 8 mmol/L BUN 12 (7-17) mg/dL Creatinine 0.78 (0.52-1.04) mg/dL Est GFR (CKD-EPI)AfAm >90 (>60 ml/min/1.73 sqM) Est GFR (CKD-EPI)NonAf >90 (>60 ml/min/1.73 sqM) Glucose 102 H (74-99) mg/dL Calcium 9.2 (8.4-10.2) mg/dL Magnesium 2.0 (1.6-2.3) mg/dL Total Bilirubin 0.4 (0.2-1.3) mg/dL AST 22 (14-36) U/L ALT 18 (4-34) U/L Alkaline Phosphatase 82 (38-126) U/L Total Protein 6.6 (6.3-8.2) g/dL Albumin 4.3 (3.5-5.0) g/dL Urine Color Urine Appearance (Clear) Urine pH (5.0-8.0) Ur Specific [place] (1.001-1.035) Urine Protein (Negative) Urine Glucose (UA) (Negative) Urine Ketones (Negative) Urine Blood (Negative) Urine Nitrite (Negative) Urine Bilirubin (Negative) Urine Urobilinogen (<2.0) mg/dL Ur Leukocyte Esterase (Negative) Urine RBC (0-5) /hpf Urine WBC (0-5) /hpf Ur Squamous Epith Cells (0-4) /hpf Urine Mucus (None) /hpf Urine HCG, Qual (Not Detectd) Influenza Type A (PCR) (Not Detectd) Influenza Type B (PCR) (Not Detectd) RSV (PCR) (Not Detectd) SARS-CoV-2 (PCR) (Not Detectd) - EKG Data -: EKG Interpreted by Me EKG Comments: 12-lead Electrocardiogram Interpretation Note EKG was reviewed and interpreted by myself. 12-lead ECG performed at 1916 is interpreted by me as revealing normal sinus rhythm at a rate of 60 beats per minute. [place] is normal. MN interval is 137 ms, QRS duration is 92 ms, QTc is 446 ms.. There were no ST or T wave abnormalities to suggest myocardial ischemia or injury. R wave progression across the precordium was satisfactory. By my interpretation this EKG is non-diagnostic for acute ischemia. Disposition Clinical Impression: Near syncope Disposition: HOME SELF-CARE Condition: Good Instructions (If sedation given, give patient instructions): Near Syncope (ED) Is patient prescribed a controlled substance at d/c from ED?: No Referrals: Gordon Lam DO [Primary Care Provider] - 1-2 days Time of Disposition: 20:27
[2023-11-27 20:31] VITALS: BP 123/62
== END 2023-11-27 20:45 | disposition home or self-care (01) ==
LOC: EC 17:46
DX: R55 Syncope and collapse (principal)
CPT/HCPCS: 36415; 80053; 81001; 81025; 83735; 85025; 85610; 85730; 87636; 93005; 96360; 99285

== ENCOUNTER → 2024-11-21 | Outpatient (CLI) | payer BC ==
[2024-11-21 13:40] VITALS: BP 122/74; PULSE 58; RESP 16; TEMP 98
--- NOTE | 2024-11-21 14:26 | P.HPOB ---
History of Present Illness H&P Date: 11/21/24 Chief Complaint: The patient is here for her routine gynecologic exam and ma mmogram. This is a 44-year-old G2, P2 with an LMP of 11/17/2024. The patient is here to establish with this office. She previously saw Dr. Gan for her gynecologic care. It has been just over 1 year since she last saw him. She is complaining of some urinary incontinence especially with coughing, sneezing, or jumping. She denies urge incontinence. She sometimes can leak even soon after she emptied her bladder. She is otherwise without gynecologic complaints. Menstrual periods are regular every month. She has used abstinence to prevent . Review of Systems The patient has lost 15 pounds over the last year. She has been trying to eat healthier. She denies respiratory, cardiac, or G.I. problems. Past Medical History Past Medical History: Cancer Additional Past Medical History / Comment(s): CURRENT: DIARRHEA, ABD PAIN. HIstory of a uterine fibroid. Basal cell skin cancer on the chest wall. 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 Conization of the cervix in 2008 History of Any Multi-Drug Resistant Organisms: None Reported Past Surgical History: Cholecystectomy Additional Past Surgical History / Comment(s): Patient had a cone biopsy cervix in 2008., colonoscopy 2019, wisdom teeth. Past Anesthesia/Blood Transfusion Reactions: Motion Sickness Additional Past Anesthesia/Blood Transfusion Reaction / Comment(s): Wakes up crying after surgery. Past Psychological History: No Psychological Hx Reported Smoking Status: Former smoker Past Alcohol Use History: Occasional (1 drink per month.) Additional Past Alcohol Use History / Comment(s): Briefly smoked in her early 20s. Past Drug Use History: None Reported Additional History: She has been since 2004 and does not work outside of the home. - Past Family History Father History Unknown: Yes Family Medical History: Cancer, Diabetes Mellitus Additional Family Medical History / Comment(s): Widespread cancer with uncertain primary. . Paternal grandfather may have had breast cancer. Paternal grandmother may have had colon cancer. Mother History Unknown: Yes Family Medical History: Hypertension, Mitral Valve Prolapse (MVP) Additional Family Medical History / Comment(s): Mitral Valve Prolapse Sister(s) Family Medical History: Thyroid Disorder Medications and Allergies Home Medications Medication Instructions Recorded Confirmed Type Ibuprofen [Motrin Ib] 200 - 400 mg PO Q6H 10/13/19 10/13/19 History Multivitamins, Thera [Multivitamin 1 tab PO DAILY 11/21/24 11/21/24 History (formulary)] Allergies Allergy/AdvReac Type Severity Reaction Status Date / Time No Known Allergies Allergy Verified 10/17/19 09:31 Exam Vital Signs Temp Pulse Resp BP Pulse Ox 11/21/24 13:33 98.0 F 58 L 16 122/74 100 Intake and Output 11/20/24 11/21/24 11/21/24 22:59 06:59 14:59 Other: Weight 58.967 kg Height 5 feet 6 inches, weight 130 pounds, BMI 21.0. This is a well-developed well-nourished white female who is alert and oriented times 3 in no acute distress. HEENT: Within normal limits. NECK: Supple without mass or thyromegaly. CHEST AND LUNGS: Clear to auscultation. HEART: Regular rate and rhythm. BREASTS: Are without mass or discharge. AXILLARY EXAM: Negative for adenopathy. BACK: Negative for CVA tenderness. ABDOMEN: Soft, nontender, without palpable masses. PELVIC EXAM: Normal external genitalia. Cervix and vagina appear normal. There is no unusual discharge. There is no evidence of prolapse at rest. There is mild urethral mobility with cough and Valsalva. No urinary leakage was demonstrated. The uterus is retroverted, nongravid size and nontender. There are no palpable adnexal masses or tenderness. RECTAL EXAM: Rectovaginal exam is negative for mass or tenderness and is negative for occult blood. There is good sphincter tone. EXTREMITIES: Nontender. IMPRESSION: 1. 44-year-old female with possible posterior uterine fibroid versus retroverted uterus, which is nongravid size. 2. Stress urinary incontinence with mild urethral mobility. PLAN: 1. Pap smear cotest was performed. 2. Self breast awareness was discussed with the patient. We have also discussed symptoms associated with inflammatory breast cancer. 3. Screening mammogram will be done today 4. Osteoporosis prevention was discussed. I have stressed the importance of adequate calcium, vitamin D and regular exercise. Recommended amounts of calcium and vitamin D were also discussed. 5. We have had a long discussion regarding stress urinary incontinence. Have recommended regular Kegel exercises and timed voids. If she is not noticing much improvement in approximately 3 months, she was instructed to call for possible referral to Dr. Dos Santos, the gynecologic urologist. 6. She was advised to return in one year for her annual well woman exam and as needed.
--- NOTE | 2024-11-22 12:43 | MM ---
Reason for Exam: Screening (asymptomatic). Last screening mammogram was performed 12 month(s) ago. Patient History: Menarche at age 12. First Full-Term at age 31. Late child-bearing (after 30). Premenopausal. Patient has history of breast feeding. Last menstrual period: 11/17/2024 Risk Values: Alejandrina 5 year model risk: 1.1%. NCI Lifetime model risk: 13.1%. Prior Study Comparison: 10/28/2021 Bilateral Screening Mammogram, [facility]. 11/11/2022 Bilateral MG 3D screening mammo w/cad, [facility]. 11/15/2023 Bilateral MG 3D screening mammo w/cad, [facility]. Tissue Density: The breasts are extremely dense, which lowers the sensitivity of mammography. Findings: Analyzed By CAD. There are a few round calcifications are redemonstrated. There are increasing loosely grouped indistinct calcifications posteriorly in the left breast. Overall Assessment: Incomplete: need additional imaging evaluation, BI-RAD 0 Management: Diagnostic Mammogram of the left breast. Return for additional views including spot magnification and 3-D true lateral views left breast. Patient should continue monthly self-breast exams. A clinical breast exam by your physician is recommended on an annual basis. This exam should not preclude additional follow-up of suspicious palpable abnormalities. Note on Alejandrina scores and lifetime risk: 1. A Alejandrina score greater than 3% is considered moderate risk. If this is the case, consider specialist referral to assess eligibility for a risk reducing agent. 2. If overall lifetime risk for the development of breast cancer is 20% or higher, the patient may qualify for future screening with alternating mammogram and breast MRI. [facility], , 11/21/2024 2:40 PM. Electronically signed and approved by: Hakan Snider M.D.
== END ==
LOC: WWCWWP 13:04
PROVIDERS: ATTEND Obstetrics & Gynecology
DX: Z01.419 Encounter for gynecological examination (general) (routine) without abnormal findings (principal); N39.3 Stress incontinence (female) (male); N36.8 Other specified disorders of urethra
CPT/HCPCS: 77063; 77067

== ENCOUNTER → 2024-11-23 | Outpatient (CLI) | payer BC ==
--- NOTE | 2024-11-23 13:06 | MM ---
Reason for Exam: Additional evaluation requested from abnormal screening. Last screening mammogram was performed less than 1 month ago. Patient History: Menarche at age 12. First Full-Term at age 31. Late child-bearing (after 30). Premenopausal. Patient has history of breast feeding. Risk Values: Alejandrina 5 year model risk: 1.1%. NCI Lifetime model risk: 13.1%. Prior Study Comparison: 11/11/2022 Bilateral MG 3D screening mammo w/cad, [facility]. 11/15/2023 Bilateral MG 3D screening mammo w/cad, [facility]. 11/21/2024 Bilateral MG 3D screening mammo w/cad, [facility]. Tissue Density: Left: The breasts are extremely dense, which lowers the sensitivity of mammography. Findings: Analyzed By CAD. A few scattered and loosely grouped benign-appearing tiny round calcifications are seen on additional views. No definitive suspicious new group of microcalcification. Overall Assessment: Probably benign, BI-RAD 3 Management: Diagnostic Mammogram of the left breast in 6 months. Precautionary short-term follow-up diagnostic left breast mammogram. Results were given to the patient verbally at the time of exam. Patient should continue monthly self-breast exams. A clinical breast exam by your physician is recommended on an annual basis. This exam should not preclude additional follow-up of suspicious palpable abnormalities. Note on Alejandrina scores and lifetime risk: 1. A Alejandrina score greater than 3% is considered moderate risk. If this is the case, consider specialist referral to assess eligibility for a risk reducing agent. 2. If overall lifetime risk for the development of breast cancer is 20% or higher, the patient may qualify for future screening with alternating mammogram and breast MRI. [facility], , 11/23/2024 1:04 PM. Electronically signed and approved by: Hakan Snider M.D.
== END | disposition home or self-care (01) ==
LOC: RADMAMWWP 12:35
PROVIDERS: ATTEND Obstetrics & Gynecology
DX: R92.8 Other abnormal and inconclusive findings on diagnostic imaging of breast (principal); R92.342 Mammographic extreme density, left breast; R92.1 Mammographic calcification found on diagnostic imaging of breast
CPT/HCPCS: 77061; 77065